=== PATIENT | female | born 1980 | race Caucasian/White ===

== ENCOUNTER 2017-03-14 01:50 | Emergency (ER) | payer BC, SELFPAY ==
[~2017-03-14 01:50] MED LIST: ALDACTONE25 M1 PO; BIRTH CONTROL; NAPROSYN250 MG PO; SINGULAIR10 M1 PO; ZYRTEC10 M7 PO
[2017-03-14] MEDS ORDERED: IMITREX50 M2 PO (02:01)
[2017-03-14] MEDS ORDERED: CENTRAL-VITE1 EAC1 PO (02:01)
== END 2017-03-14 03:53 ==
LOC: EDMED 01:50
DX: G43.909 Migraine, unspecified, not intractable, without status migrainosus (principal)
CPT/HCPCS: J1200; J1885; J2765; J7030